=== PATIENT | male | born 1980 | race Hispanic/Latino ===

== ENCOUNTER 2022-01-04 00:13 | Emergency (ER) | payer BC, SELFPAY ==
--- NOTE | 2022-01-04 01:08 | ER ---
Nurse's Notes [facility] Name: Fredis Martin Age: 41 yrs Sex: Male : 1980 Arrival Date: 01/04/2022 Time: 00:20 Bed 20 Private MD: Diagnosis: Other infective otitis externa, left ear Presentation: 01/04 00:29 Chief complaint: Patient states: "I'm having really bad left ear pain". Coronavirus as6 screen: At this time, the client does not indicate any symptoms associated with coronavirus-19. Ebola Screen: No symptoms or risks identified at this time. Initial Sepsis Screen: Does the patient meet any 2 criteria? No. Patient's initial sepsis screen is negative. Does the patient have a suspected source of infection? No. Patient's initial sepsis screen is negative. Risk Assessment: Do you want to hurt yourself or someone else? Patient reports no desire to harm self or others. Onset of symptoms was December 24, 2021. 00:29 Method Of Arrival: Ambulatory as6 00:29 Acuity: KIANA 4 as6 Historical: - Allergies: 00:31 No Known Allergies; as6 - PMHx: 00:31 Hypertensive disorder; Anxiety; as6 - Immunization history:: Client reports having NOT received the Covid vaccine. - Social history:: Smoking status: Patient reports the use of cigarette tobacco products, smokes one-half pack cigarettes per day. Screenin:45 Abuse screen: Denies threats or abuse. Denies injuries from another. Nutritional lg3 screening: No deficits noted. Tuberculosis screening: No symptoms or risk factors identified. Fall Risk None identified. Assessment: 00:45 General: Appears in no apparent distress. uncomfortable, Behavior is calm, cooperative. lg3 Pain: Complains of pain in left ear Pain began 1 week ago. Neuro: No deficits noted. Reyes Agitation-Sedation Scale (RASS): 0 - Alert and Calm Level of Consciousness is awake, alert, obeys commands, Oriented to person, place, time, situation. Cardiovascular: No deficits noted. Denies chest pain, shortness of breath, Capillary refill < 3 seconds Clubbing of nail beds is absent JVD is absent Patient's skin is warm and dry. Respiratory: No deficits noted. Airway is patent Trachea midline Respiratory effort is even, unlabored, Respiratory pattern is regular, symmetrical. GI: No deficits noted. No signs and/or symptoms were reported involving the gastrointestinal system. Abdomen is round non-distended. : No deficits noted. No signs and/or symptoms were reported regarding the genitourinary system. EENT: Reports pain in left ear. Derm: No deficits noted. No signs and/or symptoms reported regarding the dermatologic system. Skin is intact, is healthy with good turgor, Skin is dry, Skin temperature is warm. Musculoskeletal: No deficits noted. No signs and/or symptoms reported regarding the musculoskeletal system. Circulation, motion, and sensation intact. Range of motion: intact in all extremities. 01:21 Reassessment: Patient appears in no apparent distress at this time. No changes from lg3 previously documented assessment. Patient and/or family updated on plan of care and expected duration. Pain level reassessed. Patient is alert, oriented x 3, equal unlabored respirations, skin warm/dry/pink. Vital Signs: 00:29 BP 157 / 89; Pulse 63; Resp 18 S; Temp 98.6(O); Pulse Ox 97% on R/A; Weight 88.45 kg as6 (R); Height 5 ft. 2 in. (157.48 cm) (R); Pain 10/10; 01:21 BP 142 / 82; Pulse 65; Resp 17 S; Pulse Ox 98% on R/A; lg3 00:29 Body Mass Index 35.67 (88.45 kg, 157.48 cm) as6 ED Course: 00:20 Patient arrived in ED. bp1 00:25 Bertha Diamond, SHERRILL is Primary Nurse. lg3 00:31 Triage completed. as6 00:31 Arm band placed on. as6 00:35 Wali Cervantes MD is Attending Physician. kdr 00:45 Patient has correct armband on for positive identification. Bed in low position. Call lg3 light in reach. Side rails up X 1. Client placed on continuous cardiac and pulse oximetry monitoring. NIBP monitoring applied. Door closed. Noise minimized. Warm blanket given. 01:22 No provider procedures requiring assistance completed. Patient did not have IV access lg3 during this emergency room visit. Administered Medications: 01:21 Drug: Cortisporin (neomycin-polymyxin) Drops 4 drops Route: Otic; Site: left ear; lg3 01:21 Follow up: Response: No adverse reaction lg3 01:21 Drug: Ibuprofen 800 mg Route: PO; lg3 01:21 Follow up: Response: No adverse reaction lg3 Medication: 00:45 VIS not applicable for this client. lg3 Outcome: 01:07 Discharge ordered by . kdr 01:22 Discharged to home ambulatory. lg3 01:22 Condition: stable 01:22 Discharge instructions given to patient, Instructed on discharge instructions, follow up and referral plans. medication usage, Demonstrated understanding of instructions, follow-up care, medications, Prescriptions given X 3. 01:28 Patient left the ED. lg3 Signatures: Wali Cervantes MD MD kdr Gibson, Lacie, RN RN lg3 Kelley Vergara Ashby, RN RN as6
--- NOTE | 2022-01-04 01:08 | EDPHYS ---
Physician Documentation [facility] Name: Fredis Martin Age: 41 yrs Sex: Male : 1980 Arrival Date: 01/04/2022 Time: 00:20 Bed 20 Private MD: ED Physician Wali Cervantes HPI: 01/04 01:53 This 41 yrs old Male presents to ER via Ambulatory with complaints of Ear Pain.kdr 01:53 The patient presents with a fullness, pain, tenderness. The complaints affect the left kdr ear. Onset: The symptoms/episode began/occurred gradually, 2 week(s) ago, Patient has had pain for about 2 weeks but over the last 24 hours, he has had significant worsening of the pain in his left ear. Tonight he stated that the pain had become so intense that he was not able to relax or go to sleep. He subsequently sought treatment. Modifying factors: The symptoms are alleviated by nothing, the symptoms are aggravated by nothing. Associated signs and symptoms: The patient has no apparent associated signs or symptoms. Severity of symptoms: At their worst the symptoms were moderate in the emergency department the symptoms are unchanged. The patient has not experienced similar symptoms in the past. The patient has not recently seen a physician. Historical: - Allergies: 00:31 No Known Allergies; as6 - PMHx: 00:31 Hypertensive disorder; Anxiety; as6 - Immunization history:: Client reports having NOT received the Covid vaccine. - Social history:: Smoking status: Patient reports the use of cigarette tobacco products, smokes one-half pack cigarettes per day. ROS: 01:53 Constitutional: Negative for fever, chills, and weight loss, Eyes: Negative for injury, kdr pain, redness, and discharge, Neck: Negative for injury, pain, and swelling, Cardiovascular: Negative for chest pain, palpitations, and edema, Respiratory: Negative for shortness of breath, cough, wheezing, and pleuritic chest pain, Abdomen/GI: Negative for abdominal pain, nausea, vomiting, diarrhea, and constipation. 01:53 ENT: Positive for ear pain. Exam: 01:53 Constitutional: This is a well developed, well nourished patient who is awake, alert, kdr and in no acute distress. Head/Face: Normocephalic, atraumatic. Eyes: Pupils equal round and reactive to light, extra-ocular motions intact. Lids and lashes normal. Conjunctiva and sclera are non-icteric and not injected. Cornea within normal limits. Periorbital areas with no swelling, redness, or edema. Neck: Trachea midline, no thyromegaly or masses palpated, and no cervical lymphadenopathy. Supple, full range of motion without nuchal rigidity, or vertebral point tenderness. No Meningismus. Chest/axilla: Normal chest wall appearance and motion. Nontender with no deformity. No lesions are appreciated. Cardiovascular: Regular rate and rhythm with a normal S1 and S2. No gallops, murmurs, or rubs. Normal PMI, no JVD. No pulse deficits. 01:53 ENT: External ear(s): are unremarkable, Ear canal(s): erythema, swelling, that is minimal, of the left canal. Vital Signs: 00:29 BP 157 / 89; Pulse 63; Resp 18 S; Temp 98.6(O); Pulse Ox 97% on R/A; Weight 88.45 kg as6 (R); Height 5 ft. 2 in. (157.48 cm) (R); Pain 10/10; 01:21 BP 142 / 82; Pulse 65; Resp 17 S; Pulse Ox 98% on R/A; lg3 00:29 Body Mass Index 35.67 (88.45 kg, 157.48 cm) as6 MDM: 01:07 Patient medically screened. kdr 01:53 Data reviewed: vital signs, nurses notes. Counseling: I had a detailed discussion with kdr the patient and/or guardian regarding: the historical points, exam findings, and any diagnostic results supporting the discharge/admit diagnosis, the need for outpatient follow up. Administered Medications: 01:21 Drug: Cortisporin (neomycin-polymyxin) Drops 4 drops Route: Otic; Site: left ear; lg3 01:21 Follow up: Response: No adverse reaction lg3 01:21 Drug: Ibuprofen 800 mg Route: PO; lg3 01:21 Follow up: Response: No adverse reaction lg3 Disposition Summary: 01/04/22 01:07 Discharge Ordered Location: Home kdr Problem: new kdr Symptoms: have improved kdr Condition: Stable kdr Diagnosis - Other infective otitis externa, left ear kdr Followup: kdr - With: Private Physician - When: 2 - 3 days - Reason: If symptoms return, Further diagnostic work-up, Recheck today's complaints, Continuance of care, Re-evaluation by your physician Discharge Instructions: - Discharge Summary Sheet kdr - Otitis Externa, [id number] kdr - Ear Drops, Adult, [id number] kdr Forms: - Medication Reconciliation Form kdr - Thank You Letter kdr - Antibiotic Education kdr - Prescription Opioid Use kdr Prescriptions: - Cortisporin-TC 3.3-3-10-0.5 mg/mL Otic Suspension - instill 4 drops by OTIC route every 6 hours; 1 bottle; Refills: 0, Product kdr Selection Permitted - Ibuprofen 600 mg Oral Tablet - take 1 tablet by ORAL route every 6 hours As needed take with food during the kdr day; 30 tablet; Refills: 0, Product Selection Permitted - Tramadol 50 mg Oral Tablet - take 1 tablet by ORAL route every 8 hours as needed at night for sleep; 12 kdr tablet; Refills: 0, Product Selection Permitted Signatures: Wali Cervantes MD MD kdr Bertha Diamond RN RN lg3 Romario Blas RN RN as6
[2022-01-04] MEDS ORDERED: IBUPROFEN 400 MG TAB ONE (01:20)
[2022-01-04] MEDS ORDERED: NEOMY/POLY/HC 1% OTIC DROPS ONE (01:20)
[2022-01-04 01:45] VITALS: TEMP 98.6
[2022-01-04 01:48] VITALS: BP 142/82; O2SAT 98
== END 2022-01-04 01:28 | disposition home or self-care (01) ==
LOC: ER 00:13
DX: H60.392 Other infective otitis externa, left ear (principal); I10 Essential (primary) hypertension; F17.210 Nicotine dependence, cigarettes, uncomplicated

== ENCOUNTER 2023-04-20 09:17 | Observation (INO) | payer BC ==
[2023-04-20 10:14] LABS: Specific Gravity 1.021 (1.005-1.030); Urine Bacteria None Seen /HPF (<20); Urine Bilirubin 2+ (Negative); Urine Blood Negative (Negative); Urine Clarity Clear (Clear); Urine Color Dark-Yellow (Yellow); Urine Glucose NEGATIVE (Negative); Urine Mucus Slight /HPF (None Seen); Urine Protein TRACE (Negative); Urine RBC <5 /HPF (None Seen); Urine Urobilinogen Normal (Normal)
[2023-04-20 10:16] LABS: Absolute Lymphocytes (CBC) 1.4 K/uL (0.7-4.9); Hematocrit 44.6 % (39.6-49.0); Lymphocytes % 28.1 % (15.3-44.8); MCV 89.4 fL (80-100); MPV 7.9 fL (7.6-11.3); Platelets 191 thou/uL (152-406); RBC Red Blood Cell Count 4.99 M/uL (4.33-5.43)
[2023-04-20 10:19] LABS: Protime INR 0.92
[2023-04-20 10:38] LABS: Albumin 3.9 g/dL (3.4-5.0); Bilirubin Direct 3.4 mg/dL (0-0.2); Bilirubin Indirect, Calculated 0.6 mg/dL (0.2-0.8); Potassium 3.7 mEq/L (3.5-5.1); Protein, Total 7.3 g/dL (6.4-8.2)
--- NOTE | 2023-04-20 11:28 | RAD REPORT ---
EXAM DESCRIPTION: US - Abdomen Exam Limited - 04/20/2023 10:31 am CLINICAL HISTORY: jaundice COMPARISON: Abdomen Pelvis W Contrast dated 04/20/2023 TECHNIQUE: Sonographic grayscale and color flow images of the right upper abdominal quadrant were obtained. FINDINGS: The gallbladder demonstrates sizable shadowing gallstones and sludge. No pericholecystic f luid. Upper limit of normal gallbladder wall thickness, 3 millimeter. The common bile duct is normal measuring 3 mm. The liver demonstrates no findings of intrahepatic biliary dilatation. IMPRESSION: Cholelithiasis. Upper limit of normal gallbladder wall thickness, may relate to suboptimal distention or chronic chol ecystitis.
--- NOTE | 2023-04-20 11:32 | RAD REPORT ---
EXAM DESCRIPTION: CT - Abdomen Pelvis W Contrast - 04/20/2023 10:55 am CLINICAL HISTORY: jaundice COMPARISON: No comparisons TECHNIQUE: Thin cut axial CT imaging of the abdomen and pelvis was performed following intravenous a dministration of 100 mL Isovue 300. Multiplanar reformats were generated and reviewed. All CT scans are performed using dose optimization technique as appropriate and may include automated exposure control or mA/KV adjustment according to patient size. FINDINGS: No suspicious findings in the lung bases. The liver, spleen, adrenal glands, and pancreas show no suspicious findings. Gallbladder calculi with in suboptimally distended gallbladder. Some wall mucosal hyperemia noted. Symmetric renal function is seen with no hydronephrosis or suspicious renal mass. No dilated bowel loops or bowel wall thickening. Mild colonic diverticulosis. Appendix is unremarkabl e No free air, free fluid or inflammatory stranding. No hernia, mass or bulky lymphadenopathy. The ur inary bladder is without significant finding. No suspicious bony findings. IMPRESSION: Gallbladder calculi and some wall mucosal hyperemia noted. Ultrasound also demonstrated upper limit of normal thickness of the gallbladder wall. Please correlate clinically for evidence of acute cholecystitis. No other acute intra-abdominal process. Colonic diverticulosis.
[2023-04-20 11:45] LABS: Hepatitis B Core IgM Nonreactive (Nonreactive); Hepatitis B surface AG Interp. Nonreactive (Nonreactive); Hepatitis C Virus Ab Nonreactive (Nonreactive)
--- NOTE | 2023-04-20 14:17 | RAD REPORT ---
EXAM DESCRIPTION: [id number]/6/2023 2:01 pm CLINICAL HISTORY: Abdominal pain hyperbilirubinemia COMPARISON: CT abdomen April 20, 2023 TECHNIQUE: Magnetic resonance cholangiogram was performed.3D MIP reconstruction performed. Additiona l axial and coronal magnetic resonance imaging of abdomen obtained. FINDINGS: Multiple gallstones Mild gallbladder distention Borderline gallbladder wall thickening The biliary tree is normal caliber without a filling defect. Pancreatic duct is normal caliber IMPRESSION: Cholelithiasis with gallbladder distention Borderline gallbladder wall thickening
[2023-04-20] MEDS ORDERED: HYDRALAZINE HCL 20 MG/ML VIAL ONE (15:16)
--- NOTE | 2023-04-20 15:34 | EDPHYS ---
Physician Documentation [facility] Name: Fredis Martin Age: 42 yrs Sex: Male : 1980 Arrival Date: 04/20/2023 Time: 09:17 Bed 17 Private MD: ED Physician Anibal Rodriguez HPI: 04/20 16:06 This 42 yrs old Male presents to ER via Ambulatory with complaints of Blood In rt Urine. 16:06 Patient presents to the ED with jaundice, generalized fatigue, darker urine. He states rt that his eyes have been yellowed for several months, over the past month, skin is become itchy and he has become increasingly fatigued. He reports that this week, he developed darker urine. Denies gross hematuria. Denies other acute complaints at this time, symptoms are moderate in severity, no other aggravating or alleviating factors.. Historical: - Allergies: 09: No Known Allergies; hb - Home Meds: :31 unknown anxity med [Active]; hb - PMHx: :31 Anxiety; Hypertensive disorder; hb - PSHx: 09:31 Arm - Right; hb - Immunization history:: Adult Immunizations up to date. - Social history:: Smoking status: Patient reports the use of cigarette tobacco products, smokes one-half pack cigarettes per day. - Family history:: not pertinent. ROS: 16:06 Cardiovascular: Negative for chest pain, palpitations, and edema, Respiratory: Negative rt for shortness of breath, cough, wheezing, and pleuritic chest pain, Abdomen/GI: Negative for abdominal pain, nausea, vomiting, diarrhea, and constipation, Neuro: Negative for headache, weakness, numbness, tingling, and seizure, Psych: Negative for depression, anxiety, suicide ideation, homicidal ideation, and hallucinations, 16:06 Constitutional: Positive for fatigue, malaise, 16:06 Eyes: Positive for icterus, Negative for acute changes, Exam: 16:06 Constitutional: This is a well developed, well nourished patient who is awake, alert, rt and in no acute distress. Head/Face: Normocephalic, atraumatic. Chest/axilla: Normal chest wall appearance and motion. Nontender with no deformity. No lesions are appreciated. Cardiovascular: Regular rate and rhythm with a normal S1 and S2. No gallops, murmurs, or rubs. Normal PMI, no JVD. No pulse deficits. Respiratory: Lungs have equal breath sounds bilaterally, clear to auscultation and percussion. No rales, rhonchi or wheezes noted. No increased work of breathing, no retractions or nasal flaring. Abdomen/GI: Soft, non-tender, with normal bowel sounds. No distension or tympany. No guarding or rebound. No evidence of tenderness throughout. MS/ Extremity: Pulses equal, no cyanosis. Neurovascular intact. Full, normal range of motion. Neuro: Awake and alert, GCS 15, oriented to person, place, time, and situation. Cranial nerves II-XII grossly intact. Motor strength 5/5 in all extremities. Sensory grossly intact. Cerebellar exam normal. Normal gait. Psych: Awake, alert, with orientation to person, place and time. Behavior, mood, and affect are within normal limits. 16:06 Eyes: Scleral icterus noted. 16:06 Skin: Mildly jaundiced skin, no rashes. Vital Signs: 09:29 BP 184 / 107; Pulse 65; Resp 16; Temp 98.2(O); Pulse Ox 100% on R/A; Weight 86.18 kg; hb Height 5 ft. 2 in. ; Pain 3/10; 11:35 BP 181 / 104; Pulse 55; Resp 15; Pulse Ox 98% on R/A; kd3 13:34 BP 196 / 101; Pulse 54; Resp 16; Pulse Ox 99% on R/A; kd3 15:11 BP 175 / 101; Pulse 58; Resp 16; Pulse Ox 99% on R/A; kd3 15:22 BP 161 / 89; Pulse 60; Resp 16; Pulse Ox 99% on R/A; kd3 17:29 BP 159 / 88; Pulse 65; Resp 19; Pulse Ox 100% on R/A; kd3 18:09 BP 174 / 91; Pulse 71; Resp 18; Pulse Ox 100% on R/A; kd3 09:29 Body Mass Index 34.75 (86.18 kg, 157.48 cm) hb 09:29 Pain Scale: Adult hb MDM: 09:37 Patient medically screened. rt 16:06 Differential Diagnosis Hyperbilirubinemia, jaundice, pancreatic tumor, cholelithiasis, rt gallstone pancreatitis, pancreatitis, cholecystitis, hepatitis, alcoholic hepatitis. Data reviewed: vital signs, nurses notes, lab test result(s), radiologic studies. Consideration of Admission/Observation Patient was admitted/placed on observation. Management of patient was discussed with the following: Hospitalist: Agrees to admit. Consumer Advocate: Discussed with GI, recommends MRCP be performed.. I considered the following discharge prescriptions or medication management in the emergency department Medications were administered in the Emergency Department. See MAR. Independent interpretation of the following test(s) in the Emergency Department CT Scan: My interpretation is No bowel obstruction syndrome interpretation of CT scan images. Care significantly affected by the following Social Determinants of Health: Misuse of alcohol and/or drugs. 04/20 09:50 Order name: Lipase; Complete Time: 11:44 rt 04/20 09:50 Order name: CBC with Diff; Complete Time: 10:35 rt 04/20 09:50 Order name: BMP; Complete Time: 11:44 rt 04/20 09:50 Order name: LFT's; Complete Time: 11:44 rt 04/20 09:50 Order name: UAM; Complete Time: 10:35 rt 04/20 09:50 Order name: PT-INR; Complete Time: 10:35 rt 04/20 09:50 Order name: Ptt, Activated; Complete Time: 10:35 rt 04/20 10:07 Order name: Acetaminophen; Complete Time: 11:44 rt 04/20 10:07 Order name: Hepatitis Panel; Complete Time: 11:48 rt 04/20 10:40 Order name: Creatine Phosphokinase; Complete Time: 11:44 EDMS 04/20 18:14 Order name: CBC with Automated Diff EDMS 04/20 18:14 Order name: CBC with Automated Diff EDMS 04/20 18:14 Order name: Comprehensive Metabolic Panel EDMS 04/20 18:14 Order name: Comprehensive Metabolic Panel EDMS 04/20 18:14 Order name: Lipid Profile EDMS 04/20 18:14 Order name: Lipid Profile EDMS 04/20 18:14 Order name: Protime (+INR) EDMS 04/20 18:14 Order name: Protime (+INR) EDMS 04/20 18:14 Order name: PTT, Activated Partial Thromb EDMS 04/20 18:14 Order name: PTT, Activated Partial Thromb EDMS 04/20 18:18 Order name: Ammonia EDMS 04/20 18:18 Order name: C-Reactive Protein EDMS 04/20 18:18 Order name: LUCHO IFA Screen w/Reflex EDMS 04/20 18:18 Order name: LUCHO IFA Screen w/Reflex EDMS 04/20 18:18 Order name: Anti-Mitochondrial Antibody EDMS 04/20 18:18 Order name: Anti-Mitochondrial Antibody EDMS 04/20 18:18 Order name: Anti-Smooth Muscle Antibody EDMS 04/20 18:18 Order name: Anti-Smooth Muscle Antibody EDMS 04/20 18:18 Order name: C-ANCA Anti-Proteinase 3 EDMS 04/20 18:18 Order name: C-ANCA Anti-Proteinase 3 EDMS 04/20 18:18 Order name: CA 19-9 Antigen EDMS 04/20 18:18 Order name: CA 19-9 Antigen EDMS 04/20 18:18 Order name: P-ANCA Anti-Myeloperoxidase Ab EDMS 04/20 18:18 Order name: P-ANCA Anti-Myeloperoxidase Ab EDMS 04/20 09:50 Order name: Abdomen Limited US; Complete Time: 11:44 rt 04/20 09:50 Order name: CT Abd/Pelvis - IV Contrast Only; Complete Time: 11:44 rt 04/20 11:57 Order name: Cholangiogram; Complete Time: 14:20 EDMS 04/20 18:14 Order name: CONS Physician Consult EDMS 04/20 09:50 Order name: IV Saline Lock; Complete Time: 09:54 rt 04/20 09:50 Order name: Labs collected and sent; Complete Time: 09:54 rt Administered Medications: 15:10 Drug: hydrALAZINE IVP 20 mg IVP once Route: IVP; Site: right antecubital; kd3 17:32 Follow up: Response: No adverse reaction; Blood pressure is lowered kd3 Disposition Summary: 04/20/23 15:34 Hospitalization Ordered Notes: Hospitalization Status: Inpatient Admission rt Provider: Tonia Delarosa rt Location: Telemetry/MedSurg (Inpatient) rt Condition: Stable rt Problem: new rt Symptoms: are unchanged rt Bed/Room Type: Standard rt Room Assignment: 216(04/20/23 18:17) dw Diagnosis - Transaminitis rt - Hyperbilirubinemia rt - Cholelithiasis rt Forms: - Medication Reconciliation Form rt - SBAR form rt - Leadership Thank You Letter rt Signatures: Dispatcher [employer] EDMS Kristen Quiñonez RN RN dw Dorina Vickers RN RN Ofelia Vázquez RN RN kd3 Anibal Rodriguez MD MD rt Corrections: (The following items were deleted from the chart) 10:38 10:36 CREATINE PHOSPHOKINASE+C.LAB.BRZ ordered. EDTN EDTN 18:15 15:34 rt dw 18:17 18:15 231 [facility]
--- NOTE | 2023-04-20 15:34 | ER ---
Nurse's Notes [facility] Name: Fredis Martin Age: 42 yrs Sex: Male : 1980 Arrival Date: 04/20/2023 Time: 09:17 Bed 17 Private MD: Diagnosis: Transaminitis;Hyperbilirubinemia;Cholelithiasis Presentation: 04/20 09:29 Chief complaint: Patient states: "I have yellow eyes and a headache and I'm tired all hb the time and now there's blood in my urine.". Coronavirus screen: At this time, the client does not indicate any symptoms associated with coronavirus-19. Ebola Screen: No symptoms or risks identified at this time. Initial Sepsis Screen: Does the patient meet any 2 criteria? No. Patient's initial sepsis screen is negative. Does the patient have a suspected source of infection? No. Patient's initial sepsis screen is negative. Risk Assessment: Do you want to hurt yourself or someone else? Patient reports no desire to harm self or others. Onset of symptoms was April 15, 2023. 09:29 Method Of Arrival: Ambulatory 09:29 Acuity: KIANA 3 hb Triage Assessment: 09:55 General: Appears uncomfortable, Behavior is calm, cooperative. Pain: Denies pain. kd3 Neuro: Level of Consciousness is awake, alert, obeys commands, Oriented to person, place, time, situation. Cardiovascular: Patient's skin is warm and dry. Respiratory: Airway is patent Trachea midline Respiratory effort is even, unlabored, Respiratory pattern is regular, symmetrical. Historical: - Allergies: :31 No Known Allergies; hb - Home Meds: :31 unknown anxity med [Active]; hb - PMHx: :31 Anxiety; Hypertensive disorder; hb - PSHx: :31 Arm - Right; hb - Immunization history:: Adult Immunizations up to date. - Social history:: Smoking status: Patient reports the use of cigarette tobacco products, smokes one-half pack cigarettes per day. - Family history:: not pertinent. Screenin:55 [facility] ED Fall Risk Assessment (Adult) History of falling in the last 3 months, kd3 including since admission No falls in past 3 months (0 pts) Confusion or Disorientation No (0 pts) Intoxicated or Sedated No (0 pts) Impaired Gait No (0 pts) Mobility Assist Device Used No (0 pt) Altered Elimination No (0 pt) Score/Fall Risk Level 0 - 2 = Low Risk Maintained a safe environment. Abuse screen: Denies threats or abuse. Denies injuries from another. Nutritional screening: No deficits noted. Tuberculosis screening: No symptoms or risk factors identified. Assessment: 09:56 General: Appears uncomfortable, Behavior is calm, cooperative. Pain: Denies pain. kd3 Neuro: Level of Consciousness is awake, alert, obeys commands, Oriented to person, place, time, situation. Cardiovascular: Patient's skin is warm and dry. 10:04 General: Pt to CT. kd3 11:40 General: Appears in no apparent distress. Behavior is calm, cooperative. Pain: Denies kd3 pain. Neuro: Level of Consciousness is awake, alert, obeys commands, Oriented to person, place, time, situation. Cardiovascular: Patient's skin is warm and dry. 13:35 General: Pt to MRI. kd3 18:10 General: Pt updated on plan of care. Family members brought dinner for the pt. awaiting kd3 bed assignment. . 18:35 General: Attempted to call report. Nurse will call me back. kd3 Vital Signs: 09:29 BP 184 / 107; Pulse 65; Resp 16; Temp 98.2(O); Pulse Ox 100% on R/A; Weight 86.18 kg; hb Height 5 ft. 2 in. ; Pain 3/10; 11:35 BP 181 / 104; Pulse 55; Resp 15; Pulse Ox 98% on R/A; kd3 13:34 BP 196 / 101; Pulse 54; Resp 16; Pulse Ox 99% on R/A; kd3 15:11 BP 175 / 101; Pulse 58; Resp 16; Pulse Ox 99% on R/A; kd3 15:22 BP 161 / 89; Pulse 60; Resp 16; Pulse Ox 99% on R/A; kd3 17:29 BP 159 / 88; Pulse 65; Resp 19; Pulse Ox 100% on R/A; kd3 18:09 BP 174 / 91; Pulse 71; Resp 18; Pulse Ox 100% on R/A; kd3 09:29 Body Mass Index 34.75 (86.18 kg, 157.48 cm) hb 09:29 Pain Scale: Adult hb ED Course: 09:19 Patient arrived in ED. rg4 09:20 Anibal Rodriguez MD is Attending Physician. rt 09:25 Ofelia Vázquez, RN is Primary Nurse. kd3 09:31 Triage completed. hb 09:31 Arm band placed on. hb 09:54 Lipase Sent. kd3 09:54 CBC with Diff Sent. kd3 09:54 BMP Sent. kd3 09:54 LFT's Sent. kd3 09:54 PT-INR Sent. kd3 09:55 Patient has correct armband on for positive identification. Provided Education on: . kd3 09:55 Ptt, Activated Sent. kd3 09:55 Inserted saline lock: 20 gauge in right antecubital area, using aseptic technique. kd3 Blood collected. 10:33 Abdomen Limited US In Process Unspecified. EDMS 10:57 CT Abd/Pelvis - IV Contrast Only In Process Unspecified. EDMS 14:02 Cholangiogram In Process Unspecified. EDMS 15:33 Tonia Delarosa MD is Hospitalizing Provider. rt Administered Medications: 15:10 Drug: hydrALAZINE IVP 20 mg IVP once Route: IVP; Site: right antecubital; kd3 17:32 Follow up: Response: No adverse reaction; Blood pressure is lowered kd3 Medication: 09:56 VIS not applicable for this client. kd3 Outcome: 15:34 Decision to Hospitalize by Provider. rt 18:52 Patient left the ED. hb Signatures: Dispatcher [employer] EDMS Dorina Vickers RN RN hb Kelly Day rg4 Ofelia Vázquez RN RN kd3 Anibal Rodriguez MD MD rt Corrections: (The following items were deleted from the chart) 13:32 11:35 BP 181 / 104; Pulse 15bpm; Resp 55bpm; Pulse Ox 98% RA; kd3 kd3
[2023-04-20] MEDS ORDERED: MORPHINE 2 MG/ML SYR IV PRN (18:07)
[2023-04-20] MEDS ORDERED: ONDANSETRON 4 MG/2 ML VIAL IV PRN (18:07)
[2023-04-20] MEDS ORDERED: ACETYLCYST 20% 800 MG/4 ML VIAL PO ONE (18:22)
--- NOTE | 2023-04-20 18:22 | P.HP ---
Certification for Inpatient Patient admitted to: Observation With expected LOS: <2 Midnights Patient will require the following post-hospital care: None Practitioner: I am a practitioner with admitting privileges, knowledge of patient current condition, hospital course, and medical plan of care. Services: Services provided to patient in accordance with Admission requirements found in Title 42 Section 412.3 of the Code of Federal Regulations Patient History Date of Service: 04/20/23 Reason for admission: Acute Liver injury History of Present Illness: Patient is a 42-year-old gentleman who came to the hospital with abdominal pain. Patient started having abdominal complaints and came to the emergency room for further evaluation. In the emergency room, patient was found to have cholelithiasis with elevated LFTs. Patient's pain resolved quickly. Will repeat LFTs. Consult to Gastroenterology. Patient will be admitted to the hospital for further evaluation. If patient's LFTs improved, then we will do outpatient workup. Allergies No Known Allergies Allergy (Verified 04/20/23 22:56) Home Medications: Metoprolol Tartrate 25 mg PO BID #60 tab 04/21/23 chlordiazePOXIDE HCl [Chlordiazepoxide HCl] 10 mg PO TID #60 cap 04/21/23 - Past Medical/Surgical History -: hypertension -: alcohol abuse Past Surgical History: Patient denies surgical history - Family History Father Medical History: Heart disease Sister Medical History: Cancer - Social History Smoking Status: Former smoker Alcohol use: No CD- Drugs: No Review of Systems 10-point ROS is otherwise unremarkable Physical Examination - Vital Signs Temperature: 98.8 F ( reviewed) - Physical Exam General: Alert, In no apparent distress, Oriented x3 HEENT: Atraumatic, PERRLA, Mucous membr. moist/pink, EOMI, Sclerae nonicteric Neck: Supple, 2+ carotid pulse no bruit, No LAD, Without JVD or thyroid abnormality Respiratory: Clear to auscultation bilaterally, Normal air movement Cardiovascular: Regular rate/rhythm, Normal S1 S2 Gastrointestinal: Normal bowel sounds, Soft and benign, Non-distended, No tenderness, No rebound, No guarding Musculoskeletal: No clubbing, No swelling, No tenderness Integumentary: No rashes Neurological: Normal gait, Normal speech, Normal strength at 5/5 x4 extr, Normal tone, Sensation intact, Cranial nerves 3-12 intact, Normal affect Lymphatics: No axilla or inguinal lymphadenopathy - Studies Laboratory Data (last 24 hrs) 04/20/23 04/20/23 04/20/23 09:53 09:53 09:53 WBC 4.80 Hgb 15.3 Hct 44.6 Plt Count 191 PT 10.1 INR 0.92 APTT 35.3 Sodium 138 Potassium 3.7 BUN 10 Creatinine 0.91 Glucose 114 H Total Bilirubin 4.0 H AST 261 H ALT 669 H Alkaline Phosphatase 129 H Lipase 73 Assessment & Plan - Problems (Diagnosis) (1) Cholelithiasis Status: Acute (2) Acute hepatitis Status: Acute - Plan Plan: 1. Continue with IV fluids 2. Monitor LFTs closely 3. Spoke with GI and they will follow-up as an outpatient. 4. Acute hepatitis 5. Gi and DVT prophylaxis Discharge Plan: Home Plan to discharge in: Greater than 2 days - Advance Directives Does patient have a Living Will: No Does patient have a Durable POA for Healthcare: No - Code Status/Comfort Care Code Status Assessed: Yes Code Status: Full Code Critical Care: No Time Spent Managing PTS Care (In Minutes): 45
[2023-04-20 19:55] VITALS: O2SAT 100
[2023-04-20] MEDS: NA CHLORIDE 0.9% 1,000 ML IV SCH (21:52)
[2023-04-20] MEDS: ACETYLCYST 20% 800 MG/4 ML VIAL PO SCH (21:53)
[2023-04-20] MEDS: LABETALOL 20 MG/4ML SYRINGE IV PRN (22:03)
[2023-04-20 23:22] VITALS: BMI 34.7
[2023-04-21] MEDS: LABETALOL 20 MG/4ML SYRINGE IV PRN (03:06)
[2023-04-21] MEDS ORDERED: HYDRALAZINE HCL 20 MG/ML VIAL IV PRN (03:31)
[2023-04-21 04:08] LABS: Protime INR 0.84
[2023-04-21 04:13] LABS: Absolute Lymphocytes (CBC) 2.1 K/uL (0.7-4.9); Hematocrit 43.5 % (39.6-49.0); MCV 89.3 fL (80-100); MPV 8.1 fL (7.6-11.3); Platelets 180 thou/uL (152-406); RBC Red Blood Cell Count 4.87 M/uL (4.33-5.43)
[2023-04-21 04:22] LABS: Albumin 3.3 g/dL (3.4-5.0); Bilirubin Total 1.9 mg/dL (0.2-1.0); Potassium 3.5 mEq/L (3.5-5.1); Protein, Total 6.8 g/dL (6.4-8.2)
[2023-04-21] MEDS: NA CHLORIDE 0.9% 1,000 ML IV SCH (05:00)
[2023-04-21] MEDS: ACETYLCYST 20% 800 MG/4 ML VIAL PO SCH (08:51)
[2023-04-21] MEDS ORDERED: INFLUENZA VACCINE (for 6+ mo) 0.5 ML DOSE IMVAC ONE (09:00)
[2023-04-21 15:03] VITALS: BP 183/103
[2023-04-28 01:28] VITALS: TEMP 98.8
--- NOTE | 2023-04-28 01:31 | P.DS ---
Discharge Date: 04/21/23 Disposition: ROUTINE DISCHARGE Discharge Condition: GOOD Reason for Admission: Acute Liver injury - Problems (1) Cholelithiasis Status: Acute (2) Acute hepatitis Status: Acute Brief History of Present Illness: Patient is a 42-year-old gentleman who came to the hospital with abdominal pain. Patient started having abdominal complaints and came to the emergency room for further evaluation. In the emergency room, patient was found to have cholelithiasis with elevated LFTs. Patient's pain resolved quickly. Will repeat LFTs. Consult to Gastroenterology. Patient will be admitted to the hospital for further evaluation. If patient's LFTs improved, then we will do outpatient workup. Hospital Course: Patient's LFTs have improved. Patient is clinically doing well. At this time, patient is stable for discharge. Counseled regarding alcohol cessation. Vital Signs/Physical Exam: Temp Pulse Resp BP Pulse Ox 98.8 F 61 16 183/103 H 97 04/28/23 01:28 04/21/23 12:00 04/21/23 12:00 04/21/23 12:00 04/21/23 12:00 General: Alert, In no apparent distress, Oriented x3 Laboratory Data at Discharge: WBC 6.30 thou/uL (4.3-10.9) 04/21/23 03:29 Hgb 15.6 g/dL (13.6-17.9) 04/21/23 03:29 Hct 43.5 % (39.6-49.0) 04/21/23 03:29 Plt Count 180 thou/uL (152-406) 04/21/23 03:29 PT 9.2 SECONDS (9.5-12.5) L 04/21/23 03:29 INR 0.84 04/21/23 03:29 APTT 37.8 SECONDS (24.3-36.9) H 04/21/23 03:29 Sodium 137 mEq/L (136-145) 04/21/23 03:29 Potassium 3.5 mEq/L (3.5-5.1) 04/21/23 03:29 BUN 10 mg/dL (7-18) 04/21/23 03:29 Creatinine 0.91 mg/dL (0.70-1.30) 04/21/23 03:29 Glucose 136 mg/dL (74-106) H 04/21/23 03:29 Total Bilirubin 1.9 mg/dL (0.2-1.0) H 04/21/23 03:29 AST 168 U/L (15-37) H 04/21/23 03:29 ALT 519 U/L (16-61) H 04/21/23 03:29 Alkaline Phosphatase 120 U/L (45-117) H 04/21/23 03:29 Triglycerides 276 mg/dL (<150) H 04/21/23 03:29 Cholesterol 204 mg/dL (<200) H 04/21/23 03:29 HDL Cholesterol 29 mg/dL (40-60) L 04/21/23 03:29 Cholesterol/HDL Ratio 7.03 04/21/23 03:29 Lipase 73 U/L (13-75) 04/20/23 09:53 Home Medications: Metoprolol Tartrate 25 mg PO BID #60 tab 04/21/23 chlordiazePOXIDE HCl [Chlordiazepoxide HCl] 10 mg PO TID #60 cap 04/21/23 New Medications: chlordiazePOXIDE HCl [Chlordiazepoxide HCl] 10 mg PO TID #60 cap Metoprolol Tartrate 25 mg PO BID #60 tab Physician Discharge Instructions: -DC IV and DC home -Follow-up with PCP in 1 to 2 weeks -Follow-up with Cardiology in 1 to 2 weeks -Please call Dr. Delarosa at [phone] if any questions regarding hospital stay -Please call nursing station at [phone] if any nursing or medication questions -Return to the emergency room if symptoms worsen Diet: Regular Activity: Fall precautions Followup: NONE,NONE [Primary Care Provider] - Time spent managing pt's care (in minutes): 35
== END 2023-04-21 14:38 | disposition home or self-care (01) ==
LOC: ER 09:17 → 2ND 18:08
PROVIDERS: ADMIT Hospitalist; ATTEND Hospitalist
DX: K80.20 Calculus of gallbladder without cholecystitis without obstruction (principal); B17.9 Acute viral hepatitis, unspecified; R74.01 Elevation of levels of liver transaminase levels; F17.210 Nicotine dependence, cigarettes, uncomplicated; F41.9 Anxiety disorder, unspecified; I10 Essential (primary) hypertension; E80.6 Other disorders of bilirubin metabolism
CPT/HCPCS: 85025 ×2; 81001; 80048; 36415; 82140; 82550; 85610 ×2; 80061; 80076; 85730 ×2; 83690; 80053; 86038; 86255; 86301; 86021 ×2; 86140; 80074; 74177; 74181; 76705; 96374; 99284; 80143; 86015; Q9967; J0360 ×2; J7030; G0378 ×3